=== PATIENT | male | born 1980 | race Caucasian/White ===

== ENCOUNTER → 2016-09-25 | Outpatient (CLI) | payer OTHER ==
--- NOTE | 2016-09-26 09:44 | XR ---
EXAMINATION TYPE: XR shoulder complete LT DATE OF EXAM: 09/25/2016 1:52 PM CLINICAL HISTORY: pain COMPARISON: NONE TECHNIQUE: Three views of the left shoulder are obtained. FINDINGS: There is no acute fracture/dislocation evident. The acromioclavicular and glenohumeral [place] int spaces appear within normal limits. The visualized ribs are intact and unremarkable. IMPRESSION: 1. There is no acute fracture or dislocation. ICD 10 NO FRACTURE, INITIAL EVALUATION
== END | disposition home or self-care (01) ==
LOC: RADXRYALE 13:40
PROVIDERS: ATTEND Internal Medicine
DX: M25.512 Pain in left shoulder (principal)

== ENCOUNTER 2017-04-09 20:03 | Emergency (ER) | payer OTHER ==
[2017-04-09 20:11] VITALS: TEMP 98.6
--- NOTE | 2017-04-09 20:32 | ED ---
Extremity Problem HPI - General Source: patient Mode of arrival: ambulatory Limitations: no limitations <Jenn Leone - Last Filed: 04/09/17 21:03> <Lukasz Titus - Last Filed: 04/09/17 22:36> - General Chief complaint: Extremity Problem,Nontraumatic Stated complaint: Foot Pain Time Seen by Provider: 04/09/17 20:16 - History of Present Illness Initial comments: 7 years old male presented with left foot pain initially toward his it out he went to see his family doctor family doctor did uric acid level that was normal today pain got worse he had a hard time bearing weight and ambulating. Also has a couple of blisters at the base of his second and third control on the left side also complaining about pain in his left great toe. He denies any trauma to the foot he does walk quite a bit daily he doesn't speak light strengthening. He denies any fever no chills (Jenn Leone) - Related Data Home Medications Medication Instructions Recorded Confirmed Divalproex ER [Depakote ER] 500 mg PO BID 04/09/17 04/09/17 Indomethacin 25 mg PO BID 04/09/17 04/09/17 Nadolol 40 mg PO DAILY 04/09/17 04/09/17 Ranitidine HCl [Zantac] 150 mg PO BID 04/09/17 04/09/17 Allergies Allergy/AdvReac Type Severity Reaction Status Date / Time adhesive tape Allergy Rash/Hives/ Verified 04/09/17 20:49 Itching propoxyphene Allergy Itching Verified 04/09/17 20:12 [From Bess] Review of Systems ROS Other: All systems not noted in ROS Statement are negative. <Jenn Leone - Last Filed: 04/09/17 21:03> ROS Other: All systems not noted in ROS Statement are negative. <Lukasz Titus - Last Filed: 04/09/17 22:36> ROS Statement: Those systems with pertinent positive or pertinent negative responses have been documented in the HPI. Past Medical History Past Medical History: GERD/Reflux, Hypertension Additional Past Medical History / Comment(s): orthostatic BP, migranges/cluster PABLO, dx with gout yesterday History of Any Multi-Drug Resistant Organisms: None Reported Past Surgical History: Joint Replacement, Orthopedic Surgery Additional Past Surgical History / Comment(s): oral sx, right rotator cuff, right knee Past Psychological History: No Psychological Hx Reported Smoking Status: Current every day smoker Past Alcohol Use History: None Reported Past Drug Use History: None Reported <Jenn Leone - Last Filed: 04/09/17 21:03> General Exam Limitations: no limitations <Jenn Leone - Last Filed: 04/09/17 21:03> <Lukasz Titus - Last Filed: 04/09/17 22:36> - General Exam Comments Initial Comments: General: The patient is awake and alert, in no distress, and does not appear acutely ill. Skin: Skin is warm and dry and no rashes or lesions are noted. Eye: Pupils are equal, round and reactive to light, extra-ocular movements are intact; there is normal conjunctiva bilaterally. Ears, nose, mouth and throat: There are moist mucous membranes and no oral lesions. Neck: The neck is supple, there is no tenderness or JVD. Cardiovascular: There is a regular rate and rhythm. No murmur, rub or gallop is appreciated. Respiratory: To auscultation bilateral, no wheezing no rhonchi no distress respiratory titus noticed Gastrointestinal: Soft, non-distended, non-tender abdomen without masses or organomegaly noted. There is no rebound or guarding present. Bowel sounds are unremarkable. Back: There is no tenderness to palpation in the midline. There is no obvious deformity. Musculoskeletal: Normal ROM, no tenderness noticed sore all over the medial and lateral malleolus and some erythema of the left great toe noticed 2 blisters each at the base of second and third toe there were 3 mm incision site each of area deep palpation over the plantar surface surface reveals some tender area to pace of all the toes. No obvious cellulitis noticed area left foot seems swollen in general comparing to the right foot Neurological: CN II-XII intact, Cranial nerves III through XII are intact. There are no obvious motor or sensory deficits. Coordination appears grossly intact. Speech is normal. Psychiatric: Cooperative, appropriate mood & affect, normal judgment. (Jenn Leone) Course <Jenn Leone - Last Filed: 04/09/17 21:03> <Lukasz Titus - Last Filed: 04/09/17 22:36> Vital Signs 04/09/17 20:07 Temperature 98.6 F Pulse Rate 71 Respiratory 18 Rate Blood Pressure 130/76 O2 Sat by Pulse [address] Joyner at 2100 to f/u on the labs and x ray (Jenn Leone) Medical Decision Making - Lab Data Result diagrams: 04/09/17 21:37 <Lukasz Titus - Last Filed: 04/09/17 22:36> - Lab Data Lab Results 04/09/17 04/09/17 Range/Units 21:37 21:37 WBC 7.7 (3.8-10.6) k/uL RBC 4.77 (4.30-5.90) m/uL Hgb 13.8 (13.0-17.5) gm/dL Hct 41.3 (39.0-53.0) % MCV 86.6 (80.0-100.0) fL MCH 28.9 (25.0-35.0) pg MCHC 33.3 (31.0-37.0) g/dL RDW 14.7 (11.5-15.5) % Plt Count 287 (150-450) k/uL Neutrophils % 52 % Lymphocytes % 36 % Monocytes % 7 % Eosinophils % 2 % Basophils % 1 % Neutrophils # 4.0 (1.3-7.7) k/uL Lymphocytes # 2.8 (1.0-4.8) k/uL Monocytes # 0.5 (0-1.0) k/uL Eosinophils # 0.2 (0-0.7) k/uL Basophils # 0.1 (0-0.2) k/uL D-Dimer 0.46 (<0.60) mg/L FEU Disposition <Jenn Leone - Last Filed: 04/09/17 21:03> <Lukasz Titus - Last Filed: 04/09/17 22:36> Clinical Impression: Left foot pain Disposition: HOME SELF-CARE Condition: Good Instructions: Arthralgia (ED) Referrals: Lenora Ochoa MD [Primary Care Provider] - 1-2 days
--- NOTE | 2017-04-09 21:04 | XR ---
EXAMINATION TYPE: XR foot complete LT DATE OF EXAM: 04/09/2017 COMPARISON: NONE HISTORY: Pain and swelling TECHNIQUE: 3 views FINDINGS: I see no fracture nor dislocation. There is a plantar calcaneal spur. Metatarsals are intac t. IMPRESSION: Negative left foot exam.
[2017-04-09 21:51] LABS: Basophils # (A) 0.1 k/uL (0-0.2); Basophils % (A) 1 %; CH 29.9; CHCM 34.6; Eosinophils # (A) 0.2 k/uL (0-0.7); Eosinophils % (A) 2 %; HCT 41.3 % (39.0-53.0); HDW 2.67; HGB 13.8 gm/dL (13.0-17.5); Luc # (Auto) 0.16; Luc % (Auto) 2; Lymphocytes # (A) 2.8 k/uL (1.0-4.8); Lymphocytes % (A) 36 %; MCH 28.9 pg (25.0-35.0); MCHC 33.3 g/dL (31.0-37.0); MCV 86.6 fL (80.0-100.0); Mean Platelet Volume 6.8; Monocytes # (A) 0.5 k/uL (0-1.0); Monocytes % (A) 7 %; Neutrophils % (A) 52 %; RBC 4.77 m/uL (4.30-5.90); RDW 14.7 % (11.5-15.5); WBC 7.7 k/uL (3.8-10.6); WBC (Perox) 7.75
[2017-04-09 23:06] VITALS: BP 137/82; PULSE 55; RESP 20
== END 2017-04-09 23:06 | disposition home or self-care (01) ==
LOC: EC 20:03
DX: M79.672 Pain in left foot (principal); K21.9 Gastro-esophageal reflux disease without esophagitis; I10 Essential (primary) hypertension; F17.200 Nicotine dependence, unspecified, uncomplicated; Z79.1 Long term (current) use of non-steroidal anti-inflammatories (NSAID); Z79.899 Other long term (current) drug therapy; Z88.5 Allergy status to narcotic agent; Z91.048 Other nonmedicinal substance allergy status
CPT/HCPCS: 36415; 85025; 85379; 99283

== ENCOUNTER → 2017-06-19 | Outpatient (CLI) | payer OTHER ==
--- NOTE | 2017-06-19 13:38 | US ---
EXAMINATION TYPE: US venous doppler duplex LE LT DATE OF EXAM: 06/19/2017 1:26 PM COMPARISON: NONE CLINICAL HISTORY: Phlebitis and thrombophlebitis of [id number]. Edema left foot x 1.5 months SIDE PERFORMED: Left TECHNIQUE: The lower extremity deep venous system is examined utilizing real time linear array sonog diana with graded compression, doppler sonography and color-flow sonography. VESSELS IMAGED: External Iliac Vein (EIV) Common Femoral Vein Deep Femoral Vein Greater Saphenous Vein * Femoral Vein Popliteal Vein Small Saphenous Vein * Proximal Calf Veins (* superficial vessels) Grayscale, color doppler, spectral doppler imaging performed of the deep veins of the lower extremity . There is normal flow, compressibility, vascular waveforms. IMPRESSION: Left Leg: No evidence of DVT as visualized
== END | disposition home or self-care (01) ==
LOC: RADUSWWP 13:00
PROVIDERS: ATTEND Orthopaedic Surgery
DX: I80.9 Phlebitis and thrombophlebitis of unspecified site (principal)

== ENCOUNTER 2021-05-28 18:30 | Emergency (ER) | payer OTHER ==
[2021-05-28 19:27] VITALS: RESP 18; TEMP 98
[2021-05-28] MEDS ORDERED: SODIUM CHLORIDE 0.9% 1,000 ML IV STA (20:52)
[2021-05-28 21:29] LABS: Basophils # (A) 0.1 k/uL (0-0.2); Basophils % (A) 1 %; Eosinophils # (A) 0.2 k/uL (0-0.7); Eosinophils % (A) 3 %; HCT 41.9 % (39.0-53.0); HGB 13.7 gm/dL (13.0-17.5); Lymphocytes # (A) 3.2 k/uL (1.0-4.8); Lymphocytes % (A) 36 %; MCH 28.9 pg (25.0-35.0); MCHC 32.7 g/dL (31.0-37.0); MCV 88.4 fL (80.0-100.0); Mean Platelet Volume 6.8; Monocytes # (A) 0.5 k/uL (0-1.0); Monocytes % (A) 6 %; Neutrophils # (A) 4.7 k/uL (1.3-7.7); Neutrophils % (A) 53 %; Platelet Count 284 k/uL (150-450); RBC 4.74 m/uL (4.30-5.90); RDW 13.9 % (11.5-15.5); WBC 8.8 k/uL (3.8-10.6)
[2021-05-28 21:44] LABS: INR 0.9 (<1.2)
--- NOTE | 2021-05-28 21:44 | XR ---
EXAMINATION TYPE: XR chest 2V DATE OF EXAM: 05/28/2021 COMPARISON: NONE HISTORY: Syncope. TECHNIQUE: Frontal and lateral views of the chest are obtained. FINDINGS: There is no focal air space opacity, pleural effusion, or pneumothorax seen. The cardiac silhouette size is within normal limits. The osseous structures are intact. IMPRESSION: No acute cardiopulmonary process.
[2021-05-28 22:44] LABS: ALT 23 U/L (4-49); AST 25 U/L (17-59); African American GFR (CKD) >90 (>60 ml/min/1.73 sqM); Albumin 4.3 g/dL (3.5-5.0); Alkaline Phosphatase 63 U/L (38-126); Anion Gap 8 mmol/L; Blood Urea Nitrogen 14 mg/dL (9-20); Calcium 9.6 mg/dL (8.4-10.2); Carbon Dioxide 23 mmol/L (22-30); Chloride 106 mmol/L (98-107); Glucose 97 mg/dL (74-99); Non-African American GFR(CKD) >90 (>60 ml/min/1.73 sqM); Potassium 4.1 mmol/L (3.5-5.1); Sodium 137 mmol/L (137-145); Total Bilirubin 0.5 mg/dL (0.2-1.3); Total Protein 7.7 g/dL (6.3-8.2)
[2021-05-28 23:01] VITALS: BP 109/76; PULSE 57
--- NOTE | 2021-05-28 23:21 | ED ---
Recheck HPI - General Chief Complaint: Recheck/Abnormal Lab/Rx Stated Complaint: Passed out Friday Time Seen by Provider: 05/28/21 20:45 Source: patient, RN notes reviewed Mode of arrival: ambulatory Limitations: no limitations - History of Present Illness Initial Comments: Patient is a 41-year-old male that presents to the emergency department compla ining of a syncopal episode on Friday. He notes that he has had these in the past and it is been intubated dehydration. notes that she tried giving him water and sugar to help. He notes that he came in for evaluation. He denied focal with feed adviser or any other specialist. He notes that he does follow with primary care. He was otherwise a well-appearing 41-year-old male in no apparent distress or pain. He denied any use today. He denied chest pain shortness of breath headache nausea vomiting diarrhea constipation fever fatigue chills. - Related Data Home Medications Medication Instructions Recorded Confirmed Divalproex ER [Depakote ER] 500 mg PO BID 04/09/17 05/28/21 Erenumab-Aooe [Aimovig 70 mg SQ Q30D 05/28/21 05/28/21 Autoinjector] Gabapentin [Neurontin] 300 mg PO TID 05/28/21 05/28/21 Omeprazole Magnesium [PriLOSEC OTC] 20 mg PO DAILY 05/28/21 05/28/21 Propranolol HCl [Propranolol HCl 120 mg PO DAILY 05/28/21 05/28/21 ER] Allergies Allergy/AdvReac Type Severity Reaction Status Date / Time adhesive tape Allergy Rash/Hives/ Verified 05/28/21 22:54 Itching propoxyphene Allergy Itching Verified 05/28/21 22:54 [From Bess] Review of Systems ROS Statement: Those systems with pertinent positive or pertinent negative responses have been documented in the HPI. ROS Other: All systems not noted in ROS Statement are negative. Past Medical History Past Medical History: GERD/Reflux, Hypertension Additional Past Medical History / Comment(s): orthostatic BP, migranges/cluster PABLO, dx with gout yesterday History of Any Multi-Drug Resistant Organisms: None Reported Past Surgical History: Joint Replacement, Orthopedic Surgery Additional Past Surgical History / Comment(s): oral sx, right rotator cuff, right knee Past Psychological History: No Psychological Hx Reported Smoking Status: Current every day smoker Past Alcohol Use History: None Reported Past Drug Use History: None Reported General Exam Limitations: no limitations General appearance: alert, in no apparent distress, obese Head exam: Present: atraumatic, normocephalic, normal inspection Eye exam: Present: normal appearance, PERRL, EOMI. Absent: scleral icterus, conjunctival injection, periorbital swelling ENT exam: Present: normal exam, mucous membranes moist Neck exam: Present: normal inspection Respiratory exam: Present: normal lung sounds bilaterally. Absent: respiratory distress, wheezes, rales, rhonchi, stridor Cardiovascular Exam: Present: regular rate, normal rhythm, normal heart sounds. Absent: systolic murmur, diastolic murmur, rubs, gallop, clicks GI/Abdominal exam: Present: soft, normal bowel sounds. Absent: distended, te nderness, guarding, rebound, rigid Extremities exam: Present: normal inspection, full ROM, normal capillary refill. Absent: tenderness, pedal edema, joint swelling, calf tenderness Neurological exam: Present: alert, oriented X3 Psychiatric exam: Present: normal affect, normal mood Skin exam: Present: warm, dry, intact, normal color. Absent: rash Course Vital Signs 05/28/21 05/28/21 05/28/21 19:25 20:54 21:00 Temperature 98 F Pulse Rate 58 L 55 L Pulse Rate [ 59 L Left Sitting Pulse Oximetery ] Pulse Rate [ 59 L Left Standing Pulse Oximetery ] Pulse Rate [ 56 L Left Supine Pulse Oximetery ] Respiratory 18 18 18 Rate Blood Pressure 118/81 107/60 Blood Pressure 116/78 [Right Arm Sitting] Blood Pressure 112/80 [Right Arm Standing] Blood Pressure 118/77 [Right Arm Supine] O2 Sat by Pulse 98 99 98 Oximetry 05/28/21 05/28/21 22:00 23:00 Temperature Pulse Rate 69 57 L Pulse Rate [ Left Sitting Pulse Oximetery ] Pulse Rate [ Left Standing Pulse Oximetery ] Pulse Rate [ Left Supine Pulse Oximetery ] Respiratory 18 18 Rate Blood Pressure 112/67 109/76 Blood Pressure [Right Arm Sitting] Blood Pressure [Right Arm Standing] Blood Pressure [Right Arm Supine] O2 Sat by Pulse 98 98 Oximetry Medical Decision Making - Medical Decision Making 41-year-old male complaining of syncopal on Friday. Labs, EKG, chest x-ray, nuclear monitoring technician, 1 L normal saline ordered. Labs unremarkable. EKG within normal as per Chest x-ray negative for any acute process. Case discussed with Dr. Titus, patient discharge home with follow-up primary care and cardiology as needed. - Lab Data Result diagrams: 05/28/21 21:16 05/28/21 21:16 Lab Results 05/28/21 05/28/21 05/28/21 Range/Units 21:16 21:16 21:16 WBC 8.8 (3.8-10.6) k/uL RBC 4.74 (4.30-5.90) m/uL Hgb 13.7 (13.0-17.5) gm/dL Hct 41.9 (39.0-53.0) % MCV 88.4 (80.0-100.0) fL MCH 28.9 (25.0-35.0) pg MCHC 32.7 (31.0-37.0) g/dL RDW 13.9 (11.5-15.5) % Plt Count 284 (150-450) k/uL MPV 6.8 Neutrophils % 53 % Lymphocytes % 36 % Monocytes % 6 % Eosinophils % 3 % Basophils % 1 % Neutrophils # 4.7 (1.3-7.7) k/uL Lymphocytes # 3.2 (1.0-4.8) k/uL Monocytes # 0.5 (0-1.0) k/uL Eosinophils # 0.2 (0-0.7) k/uL Basophils # 0.1 (0-0.2) k/uL PT 10.0 (9.0-12.0) sec INR 0.9 (<1.2) Sodium 137 (137-145) mmol/L Potassium 4.1 (3.5-5.1) mmol/L Chloride 106 (98-107) mmol/L Carbon Dioxide 23 (22-30) mmol/L Anion Gap 8 mmol/L BUN 14 (9-20) mg/dL Creatinine 0.92 (0.66-1.25) mg/dL Est GFR (CKD-EPI)AfAm >90 (>60 ml/min/1.73 sqM) Est GFR (CKD-EPI)NonAf >90 (>60 ml/min/1.73 sqM) Glucose 97 (74-99) mg/dL Calcium 9.6 (8.4-10.2) mg/dL Total Bilirubin 0.5 (0.2-1.3) mg/dL AST 25 (17-59) U/L ALT 23 (4-49) U/L Alkaline Phosphatase 63 (38-126) U/L Troponin I (0.000-0.034) ng/mL Total Protein 7.7 (6.3-8.2) g/dL Albumin 4.3 (3.5-5.0) g/dL 05/28/21 Range/Units 21:16 WBC (3.8-10.6) k/uL RBC (4.30-5.90) m/uL Hgb (13.0-17.5) gm/dL Hct (39.0-53.0) % MCV (80.0-100.0) fL MCH (25.0-35.0) pg MCHC (31.0-37.0) g/dL RDW (11.5-15.5) % Plt Count (150-450) k/uL MPV Neutrophils % % Lymphocytes % % Monocytes % % Eosinophils % % Basophils % % Neutrophils # (1.3-7.7) k/uL Lymphocytes # (1.0-4.8) k/uL Monocytes # (0-1.0) k/uL Eosinophils # (0-0.7) k/uL Basophils # (0-0.2) k/uL PT (9.0-12.0) sec INR (<1.2) Sodium (137-145) mmol/L Potassium (3.5-5.1) mmol/L Chloride (98-107) mmol/L Carbon Dioxide (22-30) mmol/L Anion Gap mmol/L BUN (9-20) mg/dL Creatinine (0.66-1.25) mg/dL Est GFR (CKD-EPI)AfAm (>60 ml/min/1.73 sqM) Est GFR (CKD-EPI)NonAf (>60 ml/min/1.73 sqM) Glucose (74-99) mg/dL Calcium (8.4-10.2) mg/dL Total Bilirubin (0.2-1.3) mg/dL AST (17-59) U/L ALT (4-49) U/L Alkaline Phosphatase (38-126) U/L Troponin I <0.012 (0.000-0.034) ng/mL Total Protein (6.3-8.2) g/dL Albumin (3.5-5.0) g/dL - EKG Data -: EKG Interpreted by Me EKG shows normal: sinus rhythm Rate: bradycardia EKG Comments: Ventricular rate 52 bpm, MO interval 180 ms, QRS duration 86 ms, QTC 390 ms, PRT axis 28/25/38. His bradycardia, otherwise normal ECG. - Radiology Data Radiology results: report reviewed, image reviewed Chest x-ray: No acute cardiopulmonary process. Disposition Clinical Impression: Syncope Disposition: HOME SELF-CARE Condition: Stable Instructions (If sedation given, give patient instructions): Syncope (ED) Additional Instructions: Please return to the Emergency Department if symptoms worsen or any other concerns. Follow-up primary care 1-2 days. Follow-up with cardiology is is possible. Increase oral fluids. Is patient prescribed a controlled substance at d/c from ED?: No Referrals: Duncan Waters DO [Primary Care Provider] - 1-2 days Dar Ortiz MD [STAFF PHYSICIAN] - 1-2 days Time of Disposition: 23:21
== END 2021-05-28 23:33 | disposition home or self-care (01) ==
LOC: EC 18:30
DX: R55 Syncope and collapse (principal); I10 Essential (primary) hypertension; K21.9 Gastro-esophageal reflux disease without esophagitis; F17.200 Nicotine dependence, unspecified, uncomplicated; Z88.5 Allergy status to narcotic agent; Z96.651 Presence of right artificial knee joint
CPT/HCPCS: 71046; 80053; 84484; 85025; 85610; 93005; 96360; 99284